=== PATIENT | female | born 1960 | race Caucasian/White ===

== ENCOUNTER 2017-04-06 10:52 | Day surgery (SDC) | payer OTHER ==
[~2017-04-06 10:52] MED LIST: Lactated Ringers 1,000 ML IV SCH; Lidocaine 1% 2 ML ONE; Lidocaine 1%/Sod Bicarbonate in NS 8.4% 1 ML Syringe IV PRN; Midazolam 1 MG/ML 2 ML SDV ONE; Propofol 200 MG/20 ML SDV ONE; Rocuronium 50 MG/5 ML Vial ONE; Sodium Chloride 0.9% 10 ML Syringe FLUSH PRN; fentaNYL 250 MCG/5 ML SDV ONE
[2017-04-06] MEDS ORDERED: Sodium Chloride 0.9% 50 ML SDV ONE (11:13)
[2017-04-06] MEDS ORDERED: Bupivacaine 0.5% 30 ML SDV ONE (11:13)
[2017-04-06] MEDS ORDERED: Iopamidol 612 MG/ML 50 ML SDV ONE (11:13)
--- NOTE | 2017-04-06 11:36 | PCM.PREANE ---
Preanesthetic Assessment - Procedure Proposed Procedure: Lap Cholecystecomy - Anesthesia/Transfusion/Family Hx Anesthesia History: Prior Anesthesia Without Reaction Family History of Anesthesia Reaction: No Transfusion History: No Prior Transfusion(s) Intubation History: Unknown - Review of Systems General: No Symptoms Pulmonary: No Symptoms, Other (needs to have sleep study done for FAHAD possibility per patient ) Cardiovascular: No Symptoms Gastrointestinal: No Symptoms Neurological: No Symptoms Other: Reports: None - Physical Assessment NPO Status Date: 04/05/17 NPO Status Time: 21:30 O2 Sat by Pulse Oximetry: 95 Respiratory Rate: 16 Vital Signs: Last Vital Signs Temp 36.6 C 04/06/17 11:00 Pulse 95 04/06/17 11:00 Resp 16 04/06/17 11:00 BP 151/106 H 04/06/17 11:00 Pulse Ox 95 04/06/17 11:00 Height: 1.6 m Weight: 119.295 kg ASA Class: 3 Mental Status: Alert & Oriented x3 Airway Class: Mallampati = 1 Dentition: Reports: Normal Dentition, Missing Tooth/Teeth (right upper baby tooth missing per patient ) Thyro-Mental Finger Breadths: 2 Mouth Opening Finger Breadths: 4 ROM/Head Extension: Full Lungs: Clear to Auscultation, Normal Respiratory Effort Cardiovascular: Regular Rate, Regular Rhythm - Allergies Allergies/Adverse Reactions: Allergies Allergy/AdvReac Type Severity Reaction Status Date / Time No Known Allergies Allergy Verified 04/05/17 15:56 - Blood Blood Available: No - Acknowledgements Anesthesia Type Planned: General Anesthesia Pt an Appropriate Candidate for the Planned Anesthesia: Yes Alternatives and Risks of Anesthesia Discussed w Pt/Guardian: Yes Pt/Guardian Understands and Agrees with Anesthesia Plan: Yes PreAnesthesia Questionnaire HEENT History: Reports: Impaired Vision, Other (See Below) Other HEENT History: wears glasses Cardiovascular History: Reports: None Respiratory History: Reports: None, SOB Gastrointestinal History: Reports: Diverticulosis, Gastritis, GERD, Hiatal Hernia Other Gastrointestinal History: reflux, esophagitis, ulcerations, esophageal stricture, duodenitis, cholecystitis, RUQ pain Genitourinary History: Reports: None 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: Musculoskeletal History: Reports: Other (See Below) Other Musculoskeletal History: joint pain Neurological History: Reports: None Psychiatric History: Reports: None Endocrine/Metabolic History: Reports: Obesity/BMI 30+ Hematologic History: Reports: None Immunologic History: Reports: None Oncologic (Cancer) History: Reports: Breast Dermatologic History: Reports: Other (See Below) Other Dermatologic History: L forearm skin lesion with removal - Past Surgical History Head Surgeries/Procedures: Reports: None GI Surgical History: Reports: Colonoscopy, EGD, Other (See Below) Other GI Surgeries/Procedures: esophogram Female Surgical History: Reports: Cervical Conization, Mastectomy, Tubal Ligation Oncologic Surgical History: Reports: Mastectomy - History Comment History Comment: Patient Active Problem List. Diagnosis. Ductal carcinoma. Ductal carcinoma. Prediabetes. . . PastMedicalHistory. Past Medical History. DiagnosisDate. [id number]. Ductal hcpditdom71/2/2014. Right breast. GERD with [id number]. with esophageal ulcer, gastritis, duodenitis, stricture, hiatal hernia. History of chemotherapy. History of esophageal reflux. History of radiation therapy. Intradermal [id number]. Joint pain. 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 BMI 44. Wears glasses. . PastSurgicalHistory. Past Surgical History. ProcedureLateralityDate. Tubal [id number]. TUBES TIED. Mastectomy vmpxbtuwg84/13/14. with bilat sentinel lymph node biopsy and right axillary lymph node dissection. Ir portacath nsngxepxw75/26/14. Left subclavian. Xztouoh7906/13/2016. Port a cath removal. Eqlrgexdnfw08/ 26/2016. screening. Done at [facility] [place]; diverticulosis. Egd 06/13/2016. Diagnostic. [facility]; esophagitis, duodenitis, gastritis, hiatal hernia, esophageal ulceration, esophageal stricture. Skin wfhefawLwxb83/26/2016. Left forearm. Done at [facility] (intradermal nevus). WcuysalEkwua80/24/2016. mole removal. Port a cath05/2016. Removal of port a cath. - SUBSTANCE USE Smoking Status *Q: Never Smoker Second Hand Smoke Exposure: No Days Per Week of Alcohol Use: 7 Number of Drinks Per Day: 4 Total Drinks Per Week: 28 Recreational Drug Use History: No - HOME MEDS Home Medications: Home Meds Calcium Carbonate/Vitamin D3 [Calcium 600-Vit D3 500 Softgel] 1 cap PO DAILY 07/04 [History] Ergocalciferol (Vitamin D2) [Vitamin D] 1 tab PO DAILY 09/27/16 [History] Pantoprazole [ProTONIX] 40 mg PO DAILY 09/27/16 [History] Letrozole [Femara] 1 tab PO DAILY 10/18/16 [History] DULoxetine [Cymbalta] 30 mg PO DAILY 04/05/17 [History] Diclofenac Sodium [Voltaren] 1 applic TOP BID PRN 04/05/17 [History] - CURRENT (IN HOUSE) MEDS Current Meds: Current Medications Ampicillin Sodium/Sulbactam (Sodium 3 gm/ Sodium Chloride) 100 mls @ 200 mls/ hr IV ONETIME ONE Stop: 04/06/17 12:14 Last Admin: 04/06/17 11:20 Dose: 200 mls/hr Lactated Ringer's (Ringers, Lactated) 1,000 mls @ 125 mls/hr IV ASDIRECTED JEANNETTE Stop: 04/06/17 23:00 Last Admin: 04/06/17 11:15 Dose: 125 mls/hr Lidocaine/Sodium Bicarbonate (Buffered Lidocaine 1% In Ns 8.4%) 0.25 ml IV ONETIME PRN PRN Reason: Prior to IV Start Stop: 04/06/17 18:00 Last Admin: 04/06/17 11:15 Dose: 0.25 ml Sodium Chloride (Saline Flush) 10 ml FLUSH ASDIRECTED PRN PRN Reason: Keep Vein Open Stop: 04/06/17 18:00 Discontinued Medications Bupivacaine HCl (Marcaine 0.5%) Confirm Administered Dose 30 ml .ROUTE .STK-MED ONE Stop: 04/06/17 11:14 Fentanyl (Sublimaze) Confirm Administered Dose 250 mcg .ROUTE .STK-MED ONE Stop: 04/06/17 09:55 Lidocaine HCl (Xylocaine-Mpf 1%) Confirm Administered Dose 2 mls @ as directed .ROUTE .STK-MED ONE Stop: 04/06/17 09:55 Iopamidol (Isovue-300 (61%)) Confirm Administered Dose 50 ml .ROUTE .STK-MED ONE Stop: 04/06/17 11:14 Midazolam HCl (Versed 1 Mg/Ml) Confirm Administered Dose 2 mg .ROUTE .STK-MED ONE Stop: 04/06/17 08:48 Propofol (Diprivan 20 Ml) Confirm Administered Dose 400 mg .ROUTE .STK-MED ONE Stop: 04/06/17 08:48 Rocuronium [place] (Zemuron) Confirm Administered Dose 50 mg .ROUTE .STK-MED ONE Stop: 04/06/17 09:55 Sodium Chloride (Normal Saline) Confirm Administered Dose 50 ml .ROUTE .STK-MED ONE Stop: 04/06/17 11:14
[2017-04-06] MEDS ORDERED: Ampicillin/Sulbactam Na 3 GM in Sodium Chloride 0.9% 100 ML IV ONE (11:45)
[2017-04-06] MEDS ORDERED: Dexamethasone 4 MG/ML 5 ML MDV ONE (12:20)
[2017-04-06] MEDS ORDERED: Ondansetron 4 MG/2 ML SDV ONE (12:20)
[2017-04-06] MEDS ORDERED: cloNIDine 1,000 MCG/10 ML SDV ONE (14:17)
[2017-04-06] MEDS ORDERED: Ketamine 500 mg/10 ML MDV ONE (14:30)
[2017-04-06] MEDS ORDERED: fentaNYL 100 MCG/2 ML SDV ONE (14:40)
[2017-04-06] MEDS ORDERED: Lactated Ringers 1,000 ML ONE ×2 (14:43)
--- NOTE | 2017-04-06 16:06 | PCM.OPNOTE ---
- General Post-Op/Procedure Note Date of Surgery/Procedure: 04/06/17 Operative Procedure(s): lap pramod Findings: see op note Pre Op Diagnosis: cholecystitis, cholelithiasis Post-Op Diagnosis: Same Anesthesia Technique: General ET Tube Primary Surgeon: Shailesh Mina EBL in mLs: 20 Condition: Good
--- NOTE | 2017-04-06 16:33 | PCM.POSTAN ---
POST ANESTHESIA ASSESSMENT - MENTAL STATUS Mental Status: Other (drowsy ) - VITAL SIGNS Pulse Rate: 88 SaO2: 93 Resp Rate: 12 Blood Pressure: 143/85 Temperature: 98.6 C - RESPIRATORY Respiratory Status: respiratory rate WNL, Airway Patent, O2 Saturation Stable - CARDIOVASCULAR CV Status: Pulse Rate WNL, Blood Pressure Stable - GASTROINTESTINAL GI Status: No Symptoms - PAIN Pain Score: 0 - POST OP HYDRATION Hydration Status: Adequate & Stable
[2017-04-06] MEDS ORDERED: fentaNYL 100 MCG/2 ML SDV IVPUSH PRN (16:35)
[2017-04-06] MEDS ORDERED: diphenhydrAMINE 50 MG/ML SDV IVPUSH PRN (16:35)
[2017-04-06] MEDS ORDERED: Ondansetron 4 MG/2 ML SDV IVPUSH PRN (16:35)
[2017-04-06] MEDS ORDERED: Acetaminophen/HYDROcodone 325-5 MG Tab PO PRN (16:37)
[2017-04-06] MEDS ORDERED: Ketorolac 15 MG/ML SDV IVPUSH ONE (16:45)
[2017-04-06 17:16] VITALS: BP 151/94
--- NOTE | 2017-04-07 07:17 | OR ---
DATE OF OPERATION: 04/06/2017 SURGEON: Shailesh Mina MD PREOPERATIVE DIAGNOSIS: Acute cholecystitis, cholelithiasis, hydrops of the gallbladder, and cystic duct obstruction. POSTOPERATIVE DIAGNOSIS: Acute cholecystitis, cholelithiasis, hydrops of the gallbladder, and cystic duct obstruction. OPERATION PERFORMED: Laparoscopic cholecystectomy. ANESTHESIA: General anesthetic. ESTIMATED BLOOD LOSS: 20 mL. DESCRIPTION OF PROCEDURE: The patient was taken to the operating room, placed in a supine position, connected to monitoring equipment, given a general anesthetic and intubated. SCDs were placed. Antibiotics were given. The abdomen was prepped with DuraPrep, draped off in a sterile fashion. Incision made above the umbilicus. Using a 5 mm Opti-Port and a 5 mm 0-degree camera, the abdominal cavity was entered. Pneumoperitoneum was established and the 5 mm camera was inserted. Abdominal cavity was scanned showing large gallbladder, extra lobe of the liver which is part of the left lobe that went over the falciform ligament and was just above the duodenum, and thickened and indurated omentum around this lobe suggesting maybe radiation injury or inflammation. The gallbladder itself was encased in omentum. The patient was placed in reverse Trendelenburg with leftward tilt and the 10 mm trocar placed in the epigastric position, one 5 mm trocar in the right upper quadrant, and one in the right lateral quadrant. Gallbladder was aspirated. It was quite tense. It was evident there was hydrops of the gallbladder. Fundus was retracted in a cephalad position and the omentum was taken off the surface of the gallbladder. The 5 mm 0-degree camera was changed out for 5 mm 30-degree camera, and this allowed to dissect out Juliet's pouch down to what appeared to be the cystic duct, the cystic artery, and the cystic plate. Clip was placed in the cystic duct and Juliet pouch junction and one on the cystic artery. The cystic duct was opened and a small amount of bile was obtained, but because of acute angle was unable to place the cholangiocatheter, and this was abandoned. A clip was placed in the cystic duct. It was cut and then 0 PDS Endoloop was also placed on the cystic duct stump. The gallbladder was then dissected up as far as possible, and then it was elected not to dissect out the posterior wall of the gallbladder. Gallbladder was opened up and the stones were removed and then the anterior portion of the gallbladder was removed leaving the posterior wall intact. This was then placed in an Endobag and removed from the epigastric port. The epigastric port then had to be opened further to allow removal of the gallbladder wall. This was then closed with a running 0 Vicryl suture and the area was irrigated and checked for stones and bleeding with excellent hemostasis. No further stones were noted except for one which was removed. The patient tolerated the procedure, sent to recovery room in a stable condition. SENG /[id number]
== END 2017-04-06 21:15 | disposition home or self-care (01) ==
LOC: JD.SDS 10:52
PROVIDERS: ATTEND Surgery
PROC: 0FT44ZZ Resection of Gallbladder, Percutaneous Endoscopic Approach (ICD-10-PCS; principal; 2017-04-06)
DX: K80.01 Calculus of gallbladder with acute cholecystitis with obstruction (principal); K82.1 Hydrops of gallbladder; K21.0 Gastro-esophageal reflux disease with esophagitis; E66.01 Morbid (severe) obesity due to excess calories; Z68.41 Body mass index [BMI] 40.0-44.9, adult; Z79.899 Other long term (current) drug therapy; Z90.13 Acquired absence of bilateral breasts and nipples; Z98.51 Tubal ligation status; Z98.890 Other specified postprocedural states; Z85.3 Personal history of malignant neoplasm of breast; Z92.21 Personal history of antineoplastic chemotherapy; Z92.3 Personal history of irradiation; Z87.19 Personal history of other diseases of the digestive system
CPT/HCPCS: 47562; 88304; J0295; J0735; J1100; J1885; J2250; J2405; J3010; J7030; J7120; 00790; J2704; Q9967

== ENCOUNTER 2018-02-22 00:13 | Emergency (ER) | payer OTHER ==
[2018-02-22 00:22] VITALS: BP 153/102
[2018-02-22] MEDS ORDERED: Budesonide 0.5 MG/2 ML Neb Susp NEB ONE (00:28)
[2018-02-22] MEDS ORDERED: Albuterol/Ipratropium 3.0-0.5 MG/3 ML Neb Soln NEB ONE (00:28)
--- NOTE | 2018-02-22 01:00 | EDM.PDOC ---
ED HPI GENERAL MEDICAL PROBLEM - General Chief Complaint: Respiratory Problem Stated Complaint: sob cough dizzy Time Seen by Provider: 02/22/18 00:59 Source of Information: Reports: Patient History Limitations: Reports: No Limitations - History of Present Illness INITIAL COMMENTS - FREE TEXT/NARRATIVE: 57-year-old female presents to the ED with cough syncope. Patient states that she passed out twice tonight from coughing so hard. She was in sitting down the first time when she passed out in the chair for a very short period of time less than 20 seconds. The last time she was in bed woke up gasping for air with severe paroxysmal cough and attempted to get up. She ended up on all fours in the closet. She denies getting hurt badly. She scraped up her right anterior shoulder. Patient has had bronchitis symptoms with severe paroxysmal productive cough for the last 10 days. She was seen at the clinic earlier yesterday and started on a Z-Bassam and given cough syrup Phenergan With Codeine 5 mils every 6 hours when necessary. She states the cough syrup hasn't helped at all. She has no history of asthma or COPD. She is not sure about fever or chills. Sputum is mostly colorless. She is bringing up a good deal of thick mucus however. Chest is hurting from coughing so much as is her head. She never did have severe myalgia or headache with onset of illness. She is a nonsmoker. Onset: Today Onset Date: 02/21/18 (Cough syncope 2 tonight. First time was around 9:30 this evening and again shortly before coming to the ED.) Duration: Other (Syncope last only 20 seconds or so.) Location: Reports: Chest (Dear paroxysmal productive cough.) Quality: Reports: Other (Mild generalized myalgia.) Severity: Severe (Severe paroxysmal cough) Improves with: Reports: None Worsens with: Reports: Other (Lying down.), Movement Context: Denies: Activity, Exercise, Lifting, Sick Contact, Trauma, Other Associated Symptoms: Reports: Chest Pain, Cough, cough w sputum, Headaches ( From coughing), Loss of Appetite, Malaise, Shortness of Breath. Denies: No Other Symptoms (From coughing so much), Confusion, Diaphoresis, Fever/Chills, Nausea/Vomiting, Rash, Seizure, Syncope, Weakness Treatments MATERIALS SCHEDULER: Reports: Acetaminophen, NSAIDS - Related Data Allergies Allergy/AdvReac Type Severity Reaction Status Date / Time No Known Allergies Allergy Verified 04/05/17 15:56 Home Meds: Home Meds Calcium Carbonate/Vitamin D3 [Calcium 600-Vit D3 500 Softgel] 1 cap PO DAILY 07/04 [History] Ergocalciferol (Vitamin D2) [Vitamin D] 1 tab PO DAILY 09/27/16 [History] Pantoprazole [ProTONIX] 40 mg PO DAILY 09/27/16 [History] Letrozole [Femara] 1 tab PO DAILY 10/18/16 [History] DULoxetine [Cymbalta] 30 mg PO DAILY 04/05/17 [History] Diclofenac Sodium [Voltaren] 1 applic TOP BID PRN 04/05/17 [History] Hydrocodone/Chlorphen P-Stirex [Tussionex Pennkinetic Susp] 5 ml PO Q12H #60 ml 02/22/18 [Rx] Past Medical History HEENT History: Reports: Impaired Vision, Other (See Below) Other HEENT History: wears glasses Cardiovascular History: Reports: None Respiratory History: Reports: None, SOB Gastrointestinal History: Reports: Diverticulosis, Gastritis, GERD, Hiatal Hernia Other Gastrointestinal History: reflux, esophagitis, ulcerations, esophageal stricture, duodenitis, cholecystitis, RUQ pain Genitourinary History: Reports: None 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: Musculoskeletal History: Reports: Other (See Below) Other Musculoskeletal History: joint pain Neurological History: Reports: None Psychiatric History: Reports: None Endocrine/Metabolic History: Reports: Obesity/BMI 30+ Hematologic History: Reports: None Immunologic History: Reports: None Oncologic (Cancer) History: Reports: Breast Dermatologic History: Reports: Other (See Below) Other Dermatologic History: L forearm skin lesion with removal - Past Surgical History Head Surgeries/Procedures: Reports: None GI Surgical History: Reports: Colonoscopy, EGD, Other (See Below) Other GI Surgeries/Procedures: esophogram Female Surgical History: Reports: Cervical Conization, Mastectomy, Tubal Ligation Oncologic Surgical History: Reports: Mastectomy - History Comment History Comment: Patient Active Problem List. Diagnosis. Ductal carcinoma. Ductal carcinoma. Prediabetes. . . PastMedicalHistory. Past Medical History. DiagnosisDate. [id number]. Ductal /2/2014. Right breast. GERD with [id number]. with esophageal ulcer, gastritis, duodenitis, stricture, hiatal hernia. History of chemotherapy. History of esophageal reflux. History of radiation therapy. Intradermal [id number]. Joint pain. 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 BMI 44. Wears glasses. . PastSurgicalHistory. Past Surgical History. ProcedureLateralityDate. Tubal [id number]. TUBES TIED. Mastectomy tlegvneof30/13/14. with bilat sentinel lymph node biopsy and right axillary lymph node dissection. Ir portacath igeayndbm80/26/14. Left subclavian. Zbyhcce4706/13/2016. Port a cath removal. Qzmmdwsbckt11/ 26/2016. screening. Done at [facility]; diverticulosis. Egd 06/13/2016. Diagnostic. Done at [facility]; esophagitis, duodenitis, gastritis, hiatal hernia, esophageal ulceration, esophageal stricture. Skin nohaahyBkqd78/26/2016. Left forearm. Done at [facility] (intradermal nevus). HlcdbtrBmrfd42/24/2016. mole removal. Port a cath05/2016. Removal of port a cath. Social & Family History - Family History Family Medical History: Noncontributory - Tobacco Use Smoking Status *Q: Never Smoker - Caffeine Use Caffeine Use: Reports: Soda - Recreational Drug Use Recreational Drug Use: No - Living Situation & Occupation Living situation: Reports: Occupation: Employed ED ROS GENERAL - Review of Systems Review Of Systems: See Below Constitutional: Reports: Fever (Low-grade fever at times), Malaise, Weakness, Fatigue, Decreased Appetite. Denies: Chills HEENT: Reports: No Symptoms Respiratory: Reports: Cough ([place] rattling in her chest when she lies down.), Sputum, Other. Denies: Wheezing, Pleuritic Chest Pain Cardiovascular: Reports: Chest Pain (From coughing so much), Blood Pressure Problem, Lightheadedness, Syncope. Denies: Claudication, Dyspnea on Exertion, Edema (Often makes her lightheaded dizzy), Orthopnea (Hypertension), Palpitations Endocrine: Reports: Fatigue GI/Abdominal: Reports: Decreased Appetite. Denies: Abdominal Pain, Anorexia, Black Stool : Reports: Incontinence (From coughing so much stress component primarily) Musculoskeletal: Reports: Neck Pain, Back Pain Skin: Reports: No Symptoms Neurological: Reports: No Symptoms Psychiatric: Reports: Depression ED EXAM, GENERAL - Physical Exam Exam: See Below (Controlled with medication) Exam Limited By: No Limitations General Appearance: Alert, WD/WN, No Apparent Distress, Other (Intermittent paroxysmal cough.) Eye Exam: Bilateral Eye: Normal Inspection Ears: Normal TMs (No signs of ear infection on my exam.) Nose: Nasal Drainage (Mild nasal congestion with turbinate swelling medial and superior turbinates bilaterally.), Other Throat/Mouth: Normal Inspection, Normal Lips, Normal Teeth, Normal Oropharynx, Normal Voice Head: Atraumatic, Normocephalic Neck: Normal Inspection, Supple, Non-Tender, Full Range of Motion. No: Carotid Bruit, Lymphadenopathy (L), Lymphadenopathy (R) Respiratory/Chest: No Respiratory Distress, No Accessory Muscle Use, Rhonchi ( Few rhonchi left lung base.). No: Crackles, Rales, Wheezing Cardiovascular: Normal Peripheral Pulses, Regular Rate, Rhythm, No Edema ( Resting tachycardia 10 6/m initially.), No Gallop, No Murmur, Tachycardia Peripheral Pulses: 2+: Posterior Tibial (L), Posterior Tibial (R), Dorsalis Pedis (L), Dorsalis Pedis (R) GI/Abdominal: Normal Bowel Sounds, Soft, Non-Tender, No Organomegaly, No Abnormal Bruit, No Mass, Pelvis Stable Extremities: Normal Inspection, Normal Range of Motion, Non-Tender, No Pedal Edema Neurological: Oriented, CN II-XII Intact, Normal Cognition, Normal Gait Psychiatric: Normal Affect, Normal Mood Skin Exam: Warm, Dry, Intact, Normal Color, Other (Abrasion right shoulder from last syncopal event.) EKG INTERPRETATION EKG Date: 02/22/18 Time: 01:15 Rhythm: NSR Rate (Beats/Min): 98 [place]: LAD-Left [place] Deviation (-22) P-Wave: Enlarged (Left atrial hypertrophy to some consideration to biatrial hypertrophy.) QRS: Other (Early R-wave transition V3 suggesting septal hypertrophy pattern.) EKG Interpretation Comments: Abnormal ECG Course - Vital Signs Last Recorded V/S: Last Vital Signs Temp 36.8 C 02/22/18 00:19 Pulse 106 H 02/22/18 00:19 Resp 18 02/22/18 00:19 BP 153/102 H 02/22/18 00:19 Pulse Ox 98 02/22/18 00:35 - Orders/Labs/Meds Orders: Active Orders 24 hr Category Date Time Status EKG Documentation Completion [RC] STAT Care 02/22/18 01:09 Active RT Aerosol Therapy [RC] ASDIRECTED Care 02/22/18 00:28 Active Chest 2V [CR] Stat Exams 02/22/18 01:08 Taken Labs: Laboratory Tests 02/22/18 02/22/18 Range/Units 01:30 01:30 WBC 10.33 H (3.98-10.04) K/mm3 RBC 4.68 (3.98-5.22) M/mm3 Hgb 11.4 (11.2-15.7) gm/L Hct 37.3 (34.1-44.9) % MCV 79.7 (79.4-94.8) fl MCH 24.4 L (25.6-32.2) pg MCHC 30.6 L (32.2-35.5) g/dl RDW Std Deviation 46.5 H (36.4-46.3) fL Plt Count 345 (182-369) K/mm3 MPV 9.8 (9.4-12.3) fl Neutrophils % (Manual) 63 H (40-60) % Band Neutrophils % 0 (0-10) % Lymphocytes % (Manual) 31 (20-40) % Atypical Lymphs % 0 % Monocytes % (Manual) 5 (2-10) % Eosinophils % (Manual) 0 L (0.7-5.8) % Basophils % (Manual) 1 (0.1-1.2) Platelet Estimate Adequate RBC Morph Comment Normal Sodium 141 (136-145) mEq/L Potassium 4.0 (3.5-5.1) mEq/L Chloride 102 (98-107) mEq/L Carbon Dioxide 29 (21-32) mEq/L Anion Gap 14.0 (5-15) BUN 11 (7-18) mg/dL Creatinine 0.9 (0.55-1.02) mg/dL Est Cr Clr Drug Dosing 57.74 mL/min Estimated GFR (MDRD) > 60 (>60) mL/min BUN/Creatinine Ratio 12.2 L (14-18) Glucose 143 H (74-106) mg/dL Calcium 9.3 (8.5-10.1) mg/dL Total Bilirubin 0.2 (0.2-1.0) mg/dL AST 28 (15-37) U/L ALT 34 (14-59) U/L Alkaline Phosphatase 118 H (46-116) U/L C-Reactive Protein 7.0 H* (<1.0) mg/dL Total Protein 7.7 (6.4-8.2) g/dl Albumin 3.1 L (3.4-5.0) g/dl Globulin 4.6 gm/dL Albumin/Globulin Ratio 0.7 L (1-2) Meds: Medications Discontinued Medications Generic Name Dose Route Start Last Admin Trade Name Freq PRN Reason Stop Dose Admin Albuterol/Ipratropium 3 ml 02/22/18 00:28 02/22/18 00:38 Duoneb 3.0-0.5 Mg/3 Ml NEB 02/22/18 00:29 3 ml ONETIME ONE Administration Budesonide 0.5 mg 02/22/18 00:28 02/22/18 00:38 Pulmicort NEB 02/22/18 00:29 0.5 mg ONETIME ONE Administration - Radiology Interpretation Free Text/Narrative:: 57-year-old female presents to the ED due to severe paroxysmal coughing. She has passed out twice tonight due to coughing spells. First time she was sitting in an easy chair and passed out for less than 20 seconds. Last time she woke from sleep with severe cough. The next thing she knew she was on all fours and in the closet. She contused her right lateral shoulder. No bony injuries. She states she's been coughing severely for the last 10-12 days with some sputum production. She was seen at the clinic yesterday at [place] and prescribed a Z- Bassam for suspect ear infection and her bronchitis. She was given Phenergan with codeine cough syrup 5 mils every 6 hours when necessary. She feels cough syrup has not helped at all. Examination shows her to be slightly warm to palpation. Her ears appear okay. There is some evidence of nasal turbinate swelling with postnasal drip. Cough is paroxysmal and does some productive with a few rhonchi left lung base. Plan chest x-ray to be done in routine labs in the ECG. Will give her a DuoNeb treatment with a Pulmicort neb as well to see if we can - Re-Assessments/Exams Free Text/Narrative Re-Assessment/Exam: 02/22/18 02:15Lab work shows a white count of 10.33 with 63% neutrophils and no bands. Hemoglobin slightly low 11.4 hematocrit of 37.3. MCV is low at 79.7 suggesting iron deficiency . Sodium is 141 with a potassium of 4.0. Toward 102 with a bicarbonate 29. Anion gap is 14.0. BUN is 11. Creatinine is 0.9. Glucose 143. Calcium 9.3. Liver function is normal. Alk phosphatase minimally elevated at 118. C-reactive protein is elevated at 7.0. Chest x-ray done shows a very tortuous thoracic aorta. Cardiac silhouette is normal visualized portion the lungs appear clear without evidence of pneumonia. Treatment will be Tussionex cough syrup 5 mils every 12 hours when necessary for cough relief. Tonight she may take 15 mils of her Phenergan with codeine cough syrup to provide cough relief and prevent cough syncope. She is to continue her Z-Bassam as written. Upon discussion of her anemia she states it's chronic and she can't tolerate the iron protocol the time because of nausea or constipation. His had a full colonoscopy without any positive findings. Departure - Departure Time of Disposition: 02:16 Disposition: Home, Self-Care 01 Condition: Fair Clinical Impression: Cough syncope, Bronchitis - Discharge Information Prescriptions: Hydrocodone/Chlorphen P-Stirex [Tussionex Pennkinetic Susp] 5 ml PO Q12H #60 ml Instructions: Acute Bronchitis, Adult, Roco-wi-Iuye Referrals: Maria Elena Harris, OUTSIDE INSTALLATION MACHINIST [Primary Care Provider] - Forms: ED Department Discharge Additional Instructions: Evaluation the emergency room tonight in regards to syncope or fainting spell related to severe cough. We call this cough syncope. As identified you have been coughing hard for the last 10-14 days. Cough is productive. He was seen earlier at the clinic yesterday and started on antibiotics Zithromax which I advised to continue. X-ray done in the ED does not show any sign of pneumonia. Lab work reveals a normal white count but does show markers elevated for bacterial infection. The lab tests also identified mild anemia with a hemoglobin of 11.8 and it suggests that you are low on iron or suffering iron deficiency. This requires further investigation. If you're eating adequate diet in iron then you may be losing blood in the GI tract which needs to be further followed up on. In regards to the cough continue Phenergan With Codeine cough syrup that you have been previous to prescribed. However increase the dose to 15 mils every 6 hours as needed with food in her stomach. I did write a prescription for Tussionex cough syrup which is a little more potent and last longer. It is usually taken 5 mils about an hour before bed to make sure that you get through the night without coughing badly. You may use Tussionex in place of Phenergan With Codeine cough syrup if you do not find the codeine cough syrup effective. - My Orders Last 24 Hours: My Active Orders 02/22/18 00:28 RT Aerosol Therapy [RC] ASDIRECTED 02/22/18 01:08 Chest 2V [CR] Stat 02/22/18 01:09 EKG Documentation Completion [RC] STAT - Assessment/Plan Last 24 Hours: My Active Orders 02/22/18 00:28 RT Aerosol Therapy [RC] ASDIRECTED 02/22/18 01:08 Chest 2V [CR] Stat 02/22/18 01:09 EKG Documentation Completion [RC] STAT
--- NOTE | 2018-02-22 07:01 | CR ---
Chest: Two views of the chest were obtained. Comparison: Prior chest x-ray of 03/24/10. Heart size is normal. Tortuous thoracic aorta is seen. Scoliosis is also noted. Minimal parenchymal scarring is seen within the left upper lung. No acute parenchymal densities are seen. Impression: 1. Incidental findings. Nothing acute is seen. Diagnostic code #2
== END 2018-02-22 02:29 | disposition home or self-care (01) ==
LOC: JD.ED 00:13
DX: R55 Syncope and collapse (principal); J40 Bronchitis, not specified as acute or chronic; K21.9 Gastro-esophageal reflux disease without esophagitis; Z79.899 Other long term (current) drug therapy
CPT/HCPCS: 36415; 71046; 71046-26; 80053; 85007; 85027; 86140; 93005; 93010; 94640; 99283-25; 99285-25

== ENCOUNTER 2019-02-15 08:36 | Day surgery (SDC) | payer OTHER ==
[~2019-02-15 08:36] MED LIST changes: -Lidocaine 1% 2 ML ONE; +Lidocaine 1%/Sod Bicarbonate in NS 8.4% 1 ML Syringe IDERM PRN; -Lidocaine 1%/Sod Bicarbonate in NS 8.4% 1 ML Syringe IV PRN; -Midazolam 1 MG/ML 2 ML SDV ONE; -Rocuronium 50 MG/5 ML Vial ONE; -fentaNYL 250 MCG/5 ML SDV ONE
--- NOTE | 2019-02-15 09:10 | PCM.PREANE ---
Preanesthetic Assessment - Anesthesia/Transfusion/Family Hx Anesthesia History: Prior Anesthesia Without Reaction Family History of Anesthesia Reaction: No Transfusion History: No Prior Transfusion(s) Intubation History: Unknown - Review of Systems General: No Symptoms Pulmonary: No Symptoms Cardiovascular: No Symptoms, Edema Gastrointestinal: Abdominal Pain, Other Neurological: No Symptoms Other: Reports: None - Physical Assessment NPO Status Date: 02/14/19 NPO Status Time: 09:00 O2 Sat by Pulse Oximetry: 97 Respiratory Rate: 16 Vital Signs: Last Vital Signs Temp 36.6 C 02/15/19 08:40 Pulse 93 02/15/19 08:40 Resp 16 02/15/19 08:40 BP 148/93 H 02/15/19 08:40 Pulse Ox 97 02/15/19 08:40 Height: 1.63 m Weight: 121.563 kg Mental Status: Alert & Oriented x3 Airway Class: Mallampati = 2 Dentition: Reports: Normal Dentition ROM/Head Extension: Full Lungs: Clear to Auscultation, Normal Respiratory Effort Cardiovascular: Regular Rate, Regular Rhythm, No Murmurs - Lab Values: Laboratory Last Values POC Glucose 119 mg/dL (70-105) H 02/15/19 08:49 - Allergies Allergies/Adverse Reactions: Allergies Allergy/AdvReac Type Severity Reaction Status Date / Time No Known Allergies Allergy Verified 02/14/19 13:50 - Blood Blood Available: No Product(s) Available: None - Anesthesia Plan Pre-Op Medication Ordered: None - Acknowledgements Anesthesia Type Planned: MAC Pt an Appropriate Candidate for the Planned Anesthesia: Yes Alternatives and Risks of Anesthesia Discussed w Pt/Guardian: Yes Pt/Guardian Understands and Agrees with Anesthesia Plan: Yes PreAnesthesia Questionnaire HEENT History: Reports: Impaired Vision, Other (See Below) Other HEENT History: wears glasses Cardiovascular History: Reports: High Cholesterol Respiratory History: Reports: Sleep Apnea, SOB Gastrointestinal History: Reports: Diverticulosis, Gastritis, GERD, Hiatal Hernia Other Gastrointestinal History: reflux, esophagitis, ulcerations, esophageal stricture, duodenitis, cholecystitis, RUQ pain Genitourinary History: Reports: None 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: Musculoskeletal History: Reports: Other (See Below) Other Musculoskeletal History: joint pain Neurological History: Reports: Other (See Below) Other Neuro History: THORACOGENIC SCOLIOSIS Psychiatric History: Reports: None Endocrine/Metabolic History: Reports: Obesity/BMI 30+ Hematologic History: Reports: Anemia, Iron Deficiency Immunologic History: Reports: None Oncologic (Cancer) History: Reports: Breast Dermatologic History: Reports: Other (See Below) Other Dermatologic History: L forearm skin lesion with removal - Past Surgical History Head Surgeries/Procedures: Reports: None Cardiovascular Surgical History: Reports: None Respiratory Surgical History: Reports: None GI Surgical History: Reports: Colonoscopy, EGD, Other (See Below) Other GI Surgeries/Procedures: esophogram Female Surgical History: Reports: Cervical Conization, Mastectomy, Tubal Ligation Neurological Surgical History: Reports: None Oncologic Surgical History: Reports: Mastectomy Dermatological Surgical History: Reports: None - History Comment History Comment: Patient Active Problem List. Diagnosis. Ductal carcinoma. Ductal carcinoma. Prediabetes. . . PastMedicalHistory. Past Medical History. DiagnosisDate. [id number]. Ductal ciontawsw86/2/2014. Right breast. GERD with gahsodiszaw2514. with esophageal ulcer, gastritis, duodenitis, stricture, hiatal hernia. History of chemotherapy. History of esophageal reflux. History of radiation therapy. Intradermal [id number]. Joint pain. 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 BMI 44. Wears glasses. . PastSurgicalHistory. Past Surgical History. ProcedureLateralityDate. Tubal [id number]. TUBES TIED. Mastectomy oojxsuipo74/13/14. with bilat sentinel lymph node biopsy and right axillary lymph node dissection. Ir portacath hzatemnbz06/26/14. Left subclavian. Jetpoob8206/13/2016. Port a cath removal. Dtzhyhmwxns71/ 26/2016. screening. Done at [facility] [employer]; diverticulosis. Egd 06/13/2016. Diagnostic. Done at [facility] [employer]; esophagitis, duodenitis, gastritis, hiatal hernia, esophageal ulceration, esophageal stricture. Skin szolesdHnto83/26/2016. Left forearm. Done at [facility] [employer] (intradermal nevus). WguwlgyLxqhl05/24/2016. mole removal. Port a cath05/2016. Removal of port a cath. - SUBSTANCE USE Smoking Status *Q: Never Smoker Days Per Week of Alcohol Use: 7 Number of Drinks Per Day: 4 Total Drinks Per Week: 28 Recreational Drug Use History: No - HOME MEDS Home Medications: Home Meds Calcium Carbonate/Vitamin D3 [Calcium 600-Vit D3 500 Softgel] 1 cap PO DAILY 07/04 [History] Ergocalciferol (Vitamin D2) [Vitamin D] 2 tab PO DAILY 09/27/16 [History] Pantoprazole [ProTONIX] 40 mg PO DAILY 09/27/16 [History] Letrozole [Femara] 2.5 mg PO DAILY 10/18/16 [History] DULoxetine [Cymbalta] 30 mg PO DAILY 04/05/17 [History] Acetaminophen [Tylenol Extra Strength] 500 - 1,000 mg PO Q6H PRN 02/14/19 [ History] Cbd Oil 1 dose SL QAM 02/14/19 [History] Ferrous Sulfate [Iron] 325 mg PO BID 02/14/19 [History] Naproxen Sodium [Aleve] 220 mg PO Q6H PRN 02/14/19 [History] Simvastatin [Zocor] 20 mg PO DAILY 02/14/19 [History] metFORMIN [Glucophage XR] 500 mg PO DAILY 02/15/19 [History] - CURRENT (IN HOUSE) MEDS Current Meds: Current Medications Lactated Ringer's (Ringers, Lactated) 1,000 mls @ 125 mls/hr IV ASDIRECTED JEANNETTE Stop: 02/15/19 23:00 Lidocaine/Sodium Bicarbonate (Buffered Lidocaine 1% In Ns 8.4%) 0.25 ml IDERM ONETIME PRN PRN Reason: Prior to IV Start Stop: 02/15/19 18:00 Sodium Chloride (Saline Flush) 10 ml FLUSH ASDIRECTED PRN PRN Reason: Keep Vein Open Stop: 02/15/19 18:00 Discontinued Medications Propofol (Diprivan 20 Ml) Confirm Administered Dose 200 mg .ROUTE .STK-MED ONE Stop: 02/15/19 07:16
[2019-02-15] MEDS ORDERED: Propofol 200 MG/20 ML SDV ONE ×4 (09:50→10:31)
[2019-02-15] MEDS ORDERED: Midazolam 1 MG/ML 2 ML SDV ONE (10:23)
--- NOTE | 2019-02-15 10:44 | PCM.OPNOTE ---
- General Post-Op/Procedure Note Date of Surgery/Procedure: 02/15/19 Operative Procedure(s): EGD and colonoscopy Findings: 1. Mild gastritis 2. Hiatal hernia 4cm 3. Descending colon colitis 4. Diverticulosis in sigmoid 5. Proctitis Pre Op Diagnosis: Positive FIT test, anemia Post-Op Diagnosis: same Anesthesia Technique: MAC Primary Surgeon: Charis Martínez Anesthesia Provider: Fam Gardiner Pathology: 1. Gastric antrum biopsy 2. Descending colon polyp 3. Descending colon biopsy 4. Rectal biopsy Fluid Replacement, Intraop: 850 Output, Urine Amount: 0 EBL in mLs: 0 Complications: none apparent Condition: Good
--- NOTE | 2019-02-15 10:45 | PCM.POSTAN ---
POST ANESTHESIA ASSESSMENT - MENTAL STATUS Mental Status: Alert - RESPIRATORY Respiratory Status: Respiratory Rate WNL, Airway Patent, O2 Saturation Stable, Supplemental Oxygen - CARDIOVASCULAR CV Status: Pulse Rate WNL, Blood Pressure Stable - GASTROINTESTINAL GI Status: No Symptoms - POST OP HYDRATION Hydration Status: Adequate & Stable
--- NOTE | 2019-02-15 10:45 | PCM48HPAN ---
Post Anesthesia Note - EVALUATION WITHIN 48HRS OF ANESTHETIC Vital Signs in Normal Range: Yes Patient Participated in Evaluation: Yes Respiratory Function Stable: Yes Airway Patent: Yes Cardiovascular Function Stable: Yes Hydration Status Stable: Yes Pain Control Satisfactory: Yes Nausea and Vomiting Control Satisfactory: Yes Mental Status Recovered: Yes Resp Rate: 16
--- NOTE | 2019-02-15 10:45 | PCM.PRNOTE ---
- Free Text/Narrative Note: Operative Report Date of Procedure: February 15, 2019 Pre Op Diagnosis: . Positive FIT test, anemia Post-Op Diagnosis: . Same Operative Procedures: 1. EGD with biopsy 2. Colonoscopy to the cecum with biopsy Primary Surgeon: Charis Martínez MD Anesthesia Provider: Fam Gardiner CRNA Anesthesia Technique: MAC IV Fluid Replacement, Intraop: 850cc crystalloid Output, Urine Amount: 0cc EBL in mLs: 0cc Findings: 1. Mild gastritis 2. Hiatal hernia 4cm 3. Descending colon colitis 4. Diverticulosis in sigmoid 5. Proctitis Specimens: 1. Gastric antrum biopsy 2. Descending colon polyp 3. Descending colon biopsy 4. Rectal biopsy Drain/Tubes: None Indication: The patient is an 58-year-old lady who presented to the clinic with , anemia, and findings of positive FIT test. The patient was consented for a diagnostic EGD and colonoscopy. Risks of bleeding, and perforation were discussed, and the patient agreed to the risks and wished to proceed. Description of the procedure: The patient was taken back to the endoscopy suite, and placed in the left lateral decubitus position. Local anesthetic to the oropharynx was administered , and a bite block was placed. The patient was sedated with MAC anesthesia. The Olympus video endoscope was inserted into the oropharynx and guided under direct vision into the esophagus, stomach, and duodenum. The gastric antrum was inspected and cold biopsy forceps were used to take tissue samples for H. pylori. The duodenal bulb and second portion of the duodenum were unremarkable. The scope was withdrawn to the stomach and retroflexed. There was a small amount of fluid in the upper gastrointestinal tract. There was mild gastritis. No erosions or ulcers were noted. The scope was withdrawn to the esophagus. A this point we noted a 4 cm sliding hiatal hernia. The Z-line was located at 36cm and the diaphragm was located at 40 cm. No Barretts esophagus changes were noted. The endoscope was then withdrawn Next, anorectal examination was performed. No lesions, masses or thrombosed hemorrhoids were noted externally or on palpation. There was a small amount of external hemorrhoid tissue that did not appear to be inflamed. The scope was placed into the rectum and advanced to cecum. Upon reaching the cecum, and the patients cecum was entered. There was mild tortuosity of the colon. The ileocecal valve was well visualized and the appendiceal orifice identified. At this point, the scope was slowly withdrawn, paying attention to the mucosa. The patient had good bowel prep, 85-90% of the mucosa was visible. A small descending colon polyp was noted. This was removed using jumbo cold biopsy forceps. There were small petechial appearing lesions scattered in the descending colon. A biopsy was taken with jumbo cold biopsy forceps. In the rectum, there was evidence of proctitis with edema and erythematous patches scattered throughout the rectum. Biopsies were taken with jumbo cold biopsy forceps. The scope was retroflexed and some hemorrhoidal tissue was noted. The scope was placed back in the lumen and excess air was aspirated. The scope was removed. The patient tolerated the procedure very well. Complications: None apparent Condition: The patient was transported to PACU in stable condition. Charis Martínez MD General Surgery
[2019-02-15 10:47] VITALS: BP 134/96
== END 2019-02-15 11:24 | disposition home or self-care (01) ==
LOC: JD.SDS 08:36
PROVIDERS: ATTEND Surgery
DX: K57.31 Diverticulosis of large intestine without perforation or abscess with bleeding (principal); K29.51 Unspecified chronic gastritis with bleeding; K63.5 Polyp of colon; K64.9 Unspecified hemorrhoids; K62.89 Other specified diseases of anus and rectum; K63.89 Other specified diseases of intestine; K44.9 Diaphragmatic hernia without obstruction or gangrene; K62.5 Hemorrhage of anus and rectum; K21.9 Gastro-esophageal reflux disease without esophagitis; D50.9 Iron deficiency anemia, unspecified; E78.00 Pure hypercholesterolemia, unspecified; E66.01 Morbid (severe) obesity due to excess calories; Z68.42 Body mass index [BMI] 45.0-49.9, adult; Z90.13 Acquired absence of bilateral breasts and nipples; Z85.3 Personal history of malignant neoplasm of breast; Z92.21 Personal history of antineoplastic chemotherapy; Z83.79 Family history of other diseases of the digestive system; Z79.84 Long term (current) use of oral hypoglycemic drugs; Z79.899 Other long term (current) drug therapy
CPT/HCPCS: 43239; 45380; 82962; 93005; J2250; J2704; J7120; 00731

== ENCOUNTER 2024-10-14 08:49 | Day surgery (SDC) | payer OTHER ==
[~2024-10-14 08:49] MED LIST changes: +Acetaminophen 325 MG Tab PO ONE; -Lactated Ringers 1,000 ML IV SCH; -Lidocaine 1%/Sod Bicarbonate in NS 8.4% 1 ML Syringe IDERM PRN; +Midazolam 1 MG/ML 2 ML SDV ONE; +Pregabalin 25 MG Cap PO ONE; +Sodium Chloride 0.9% 10 ML Syringe FLUSH SCH; +ceFAZolin 2 GM Vial ONE; +oxyCODONE ER 10 MG TAB.ER PO ONE
[2024-10-14] MEDS ORDERED: Triamcinolone Acetonide 40 MG/ML 1 ML SDV ONE (08:58)
[2024-10-14] MEDS ORDERED: Bupivacaine 0.25% 10 ML SDV ONE (08:58)
[2024-10-14] MEDS ORDERED: Propofol 200 MG/20 ML SDV ONE (09:04)
[2024-10-14] MEDS: Lactated Ringers 1,000 ML IV SCH (09:15)
[2024-10-14] MEDS ORDERED: Lidocaine 1% 5 ML VIAL ONE (10:16)
[2024-10-14] MEDS ORDERED: Ketorolac 30 MG/ML SDV ONE (10:42)
[2024-10-14] MEDS ORDERED: Ondansetron 4 MG/2 ML SDV ONE (10:42)
[2024-10-14] MEDS ORDERED: Lactated Ringers 1,000 ML ONE (10:49)
[2024-10-14] MEDS ORDERED: Ropivacaine 0.5% 5 MG/ML 30 ML SDV ONE (11:05)
[2024-10-14] MEDS ORDERED: HYDROmorphone 0.5 MG/0.5 ML Syringe IVPUSH PRN (11:09)
[2024-10-14] MEDS ORDERED: fentaNYL 100 MCG/2 ML SDV IVPUSH PRN (11:09)
[2024-10-14] MEDS ORDERED: Ondansetron 4 MG/2 ML SDV IVPUSH PRN (11:09)
[2024-10-14] MEDS ORDERED: Tranexamic Acid 1,000 MG/10 ML Vial ONE (11:37)
[2024-10-14] MEDS ORDERED: VANCOmycin 1 GM SDV ONE (11:37)
[2024-10-14] MEDS: Morphine 8 MG, EPINEPHrine 0.3 MG, Cefuroxime 750 MG, Ketorolac 30 MG, Sodium Chloride ... PRN (11:38)
[2024-10-14] MEDS: Tranexamic Acid 1,000 MG/10 ML Vial ONE (11:44)
[2024-10-14] MEDS: VANCOmycin 1 GM SDV ONE (11:44)
[2024-10-14] MEDS: oxyCODONE 5 MG Tab PO PRN (13:25)
[2024-10-14 14:46] VITALS: BP 134/70; PULSE 75
== END 2024-10-14 15:55 | disposition home or self-care (01) ==
LOC: JD.SDS 08:49
PROVIDERS: ATTEND Orthopaedic Surgery
DX: M17.0 Bilateral primary osteoarthritis of knee (principal); E78.00 Pure hypercholesterolemia, unspecified; E66.09 Other obesity due to excess calories; K21.9 Gastro-esophageal reflux disease without esophagitis; I10 Essential (primary) hypertension; Z68.43 Body mass index [BMI] 50.0-59.9, adult; Z79.899 Other long term (current) drug therapy
CPT/HCPCS: 0055T; 20610; 27447; 64447; 73560; 97116; 97161; A9270; C1713; C1776; J0171; J0665; J0690; J0697; J1885; J2250; J2272; J2405; J2704; J2795; J3301; J7120; 01400; 64417; J3490